=== PATIENT | female | born 1975 | race African-American/Black ===

== ENCOUNTER 2019-12-22 08:10 | Inpatient (IN) | payer MEDICAID, OTHER ==
[~2019-12-22] VITALS: Ht 167.6 cm; Wt 98.2 kg
[2019-12-22] MEDS ORDERED: ONDANSETRON HCL 4MG/2ML INJ IV STA (08:27)
[2019-12-22] MEDS ORDERED: MORPHINE SULFATE 4 MG/ML CPJ (NOT FOR IM USE) IV STA (08:27)
[2019-12-22 09:01] LABS: BASOPHILS % 0.4 % (0.0-2.0); EOSINOPHILS % 0.3 % (0.0-5.0); HEMATOCRIT. 41.5 % (36.0-48.0); HEMOGLOBIN. 13.4 g/dL (12.0-16.0); LYMPHOCYTES % 7.6 % (20.0-50.0); MEAN CORPUSCULAR HEMOGLOBIN 23.8 pg (28.0-32.0); MEAN CORPUSCULAR VOLUME 73.6 fL (81.0-99.0); MEAN PLATELET VOLUME 8.7 fl (7.4-10.4); MONOCYTES % 9.1 % (2.0-8.0); NEUTROPHILS % 82.6 % (40.0-76.0); PLATELET 357 x1000/uL (130-400); RED BLOOD CELL COUNT 5.63 mill/uL (4.2-5.4); RED CELL DISTRIBUTION WIDTH 14.4 % (11.6-14.6)
[2019-12-22 09:06] LABS: CHLORIDE 101 mEq/L (98-107); CLARITY URINE CLEAR (CLEAR); COLOR URINE DARK YELLOW (YELLOW); KETONES URINE 2+ (NEGATIVE); LEUKOCYTE ESTERASE URINE 1+ (NEGATIVE); NITRITE URINE NEGATIVE (NEGATIVE); OCCULT BLOOD URINE NEGATIVE (NEGATIVE); PROTEIN URINE 1+ (NEGATIVE); SPECIFIC GRAVITY URINE 1.022 (1.005-1.030)
[2019-12-22 09:08] LABS: INR 1.1; PROTHROMBIN TIME 11.5 sec (9.6-11.0)
[2019-12-22 09:18] LABS: HCG SCREEN NEGATIVE
[2019-12-22] MEDS ORDERED: LEVOFLOXACIN 750MG PREMIX 150 ML IV ONE (09:45)
[2019-12-22] MEDS ORDERED: METRONIDAZOLE 500 MG PREMIX 100 ML IV ONE (09:45)
[2019-12-22] MEDS ORDERED: CLONIDINE 0.1MG TABLET PO PRN (18:30)
[2019-12-22] MEDS ORDERED: LORAZEPAM 2MG/ML CPJ IV PRN (18:30)
[2019-12-22] MEDS ORDERED: GUAIFENESIN 200MG/10ML SUGAR FREE UDC PO PRN (18:30)
[2019-12-22] MEDS ORDERED: ONDANSETRON HCL 4MG/2ML INJ IV PRN (18:30)
[2019-12-22] MEDS ORDERED: ENOXAPARIN 40MG/0.4ML SYR SUBCUT SCH (18:30)
[2019-12-22] MEDS ORDERED: DIPHENHYDRAMINE 50MG/ML VIAL IV PRN (18:30)
[2019-12-22] MEDS ORDERED: HYDRALAZINE 20MG/ML VIAL IV PRN (18:30)
[2019-12-22] MEDS ORDERED: ACETAMINOPHEN 325MG TABLET PO PRN (18:30)
[2019-12-22] MEDS ORDERED: MAGNESIUM/ALUMINUM HYDROXIDE/SIMETHICONE 30ML UDC PO PRN (18:30)
[2019-12-22] MEDS ORDERED: LEVOFLOXACIN 500MG PREMIX 100 ML IV SCH (18:30)
[2019-12-22] MEDS ORDERED: DOCUSATE SODIUM 100MG CAPSULE PO PRN (18:30)
[2019-12-22] MEDS ORDERED: IPRATROPIUM/ALBUTEROL 0.5-3(2.5)MG/3ML NEB HHN PRN (18:30)
[2019-12-22] MEDS ORDERED: MORPHINE SULFATE 2 MG/ML CPJ (NOT FOR IM USE) IV PRN (18:30)
[2019-12-22] MEDS ORDERED: HYDROCODONE/ACETAMINOPHEN 10/325MG TABLET PO PRN (18:30)
[2019-12-22] MEDS ORDERED: KCL 20MEQ/100ML PREMIX 100 ML IV NR (18:45)
[2019-12-22] MEDS: DEXT 5%/0.45% NACL 1000ML 1,000 ML IV SCH (19:06)
[2019-12-22] MEDS: ENOXAPARIN 30MG/0.3ML SYR SUBCUT SCH ×2 (21:16→21:25)
[2019-12-22 22:00] VITALS: BP 137/74
[2019-12-23] VITALS: BP 137/74
[2019-12-23] MEDS: ACETAMINOPHEN 325MG TABLET PO PRN ×2 (01:13→20:19)
[2019-12-23] MEDS: HYDROCODONE/ACETAMINOPHEN 10/325MG TABLET PO PRN ×5 (01:13→21:13)
[2019-12-23] MEDS: SODIUM CHLORIDE 0.9% INJ 3ML FLUSH IVF SCH ×4 (01:13→22:00)
[2019-12-23 04:00] VITALS: BP 93/51
[2019-12-23 08:00] VITALS: BP 111/58
[2019-12-23] MEDS ORDERED: LEVOFLOXACIN 250MG PREMIX 50 ML IV SCH (09:00)
[2019-12-23 12:00] VITALS: BP 125/75
[2019-12-23] MEDS: DEXT 5%/0.45% NACL 1000ML 1,000 ML IV SCH ×2 (12:51→20:13)
[2019-12-23] MEDS: METRONIDAZOLE 500 MG PREMIX 100 ML IV SCH ×2 (15:34→21:12)
[2019-12-23 16:00] VITALS: BP 128/68
[2019-12-23 20:09] VITALS: BP 119/64
[2019-12-23] MEDS: ENOXAPARIN 40MG/0.4ML SYR SUBCUT SCH (20:19)
[2019-12-24] VITALS: BP 146/71
[2019-12-24] MEDS: ONDANSETRON HCL 4MG/2ML INJ IV PRN ×3 (00:29→23:28)
[2019-12-24] MEDS: MORPHINE SULFATE 2 MG/ML CPJ (NOT FOR IM USE) IV PRN (01:12)
[2019-12-24 03:37] VITALS: BP 139/73
[2019-12-24] MEDS: METRONIDAZOLE 500 MG PREMIX 100 ML IV SCH ×3 (05:00→21:24)
[2019-12-24] MEDS: SODIUM CHLORIDE 0.9% INJ 3ML FLUSH IVF SCH ×3 (05:01→21:25)
[2019-12-24] MEDS: HYDROCODONE/ACETAMINOPHEN 10/325MG TABLET PO PRN ×4 (05:03→21:24)
[2019-12-24 07:09] LABS: HEMATOCRIT 37.5 % (36.0-48.0); MEAN CORPUSCULAR HEMOGLOBIN 23.7 pg (28.0-32.0); PLATELET 347 x1000/uL (130-400); RED BLOOD CELL COUNT 5.07 mill/uL (4.2-5.4); RED CELL DISTRIBUTION WIDTH 14.4 % (11.6-14.6)
[2019-12-24 07:45] LABS: CHLORIDE 102 mEq/L (98-107)
[2019-12-24 08:00] VITALS: BP 113/58
[2019-12-24] MEDS ORDERED: POTASSIUM CHLORIDE 20MEQ TABLET SR PO NR (09:45)
[2019-12-24 12:00] VITALS: BP 130/79
[2019-12-24] MEDS: DEXT 5%/0.45% NACL 1000ML 1,000 ML IV SCH (12:27)
[2019-12-24] MEDS ORDERED: LEVOFLOXACIN 750MG PREMIX 150 ML IV SCH (13:00)
[2019-12-24 16:30] VITALS: BP 143/79
[2019-12-24] MEDS: PIPERACILLIN SODIUM/TAZOBACTAM 4.5 G in DEXT 5% WATER 100 ML IV SCH (17:18)
[2019-12-24 20:00] VITALS: BP 135/65
[2019-12-24] MEDS: ENOXAPARIN 40MG/0.4ML SYR SUBCUT SCH (21:24)
[2019-12-24] MEDS: ACETAMINOPHEN 325MG TABLET PO PRN (23:30)
[2019-12-25] VITALS (21 sets, daily range): BP systolic 129–183; BP diastolic 69–95
[2019-12-25] MEDS: PIPERACILLIN SODIUM/TAZOBACTAM 4.5 G in DEXT 5% WATER 100 ML IV SCH ×4 (02:02→18:15)
[2019-12-25] MEDS: DEXT 5%/0.45% NACL 1000ML 1,000 ML IV SCH ×2 (02:04→14:51)
[2019-12-25] MEDS: HYDROCODONE/ACETAMINOPHEN 10/325MG TABLET PO PRN ×2 (02:09→16:39)
[2019-12-25] MEDS: SODIUM CHLORIDE 0.9% INJ 3ML FLUSH IVF SCH ×3 (05:49→21:23)
[2019-12-25 05:50] LABS: BASOPHILS % 0.1 % (0.0-2.0); EOSINOPHILS % 0.8 % (0.0-5.0); HEMOGLOBIN. 12.1 g/dL (12.0-16.0); LYMPHOCYTES % 8.9 % (20.0-50.0); MEAN CORPUSCULAR HEMOGLOBIN 23.5 pg (28.0-32.0); MEAN CORPUSCULAR VOLUME 73.9 fL (81.0-99.0); MEAN PLATELET VOLUME 8.8 fl (7.4-10.4); MONOCYTES % 7.2 % (2.0-8.0); PLATELET 362 x1000/uL (130-400); RED BLOOD CELL COUNT 5.15 mill/uL (4.2-5.4); RED CELL DISTRIBUTION WIDTH 14.6 % (11.6-14.6)
[2019-12-25] MEDS: METRONIDAZOLE 500 MG PREMIX 100 ML IV SCH ×3 (05:50→21:22)
[2019-12-25 05:54] LABS: CHLORIDE 105 mEq/L (98-107)
[2019-12-25] MEDS: ONDANSETRON HCL 4MG/2ML INJ IV PRN ×2 (06:42→10:15)
[2019-12-25] MEDS: MORPHINE SULFATE 2 MG/ML CPJ (NOT FOR IM USE) IV PRN (10:15)
[2019-12-25] MEDS ORDERED: LIDOCAINE HCL 1% 20ML VIAL (Pyxis) INJ ONE (11:46)
[2019-12-25] MEDS ORDERED: SODIUM BICARBONATE 4% (2.4MEQ) 5ML VIAL IV ONE (11:46)
[2019-12-25] MEDS ORDERED: FENTANYL CITRATE/PF 50MCG/ML 2ML VIAL ONE (11:46)
[2019-12-25] MEDS ORDERED: FENTANYL CITRATE/PF 50MCG/ML 2ML VIAL IV ONE (14:30)
[2019-12-25 15:29] LABS: INR 1.2
[2019-12-25] MEDS: ENOXAPARIN 40MG/0.4ML SYR SUBCUT SCH (21:22)
[2019-12-26] VITALS: BP 143/77
[2019-12-26] MEDS: PIPERACILLIN SODIUM/TAZOBACTAM 4.5 G in DEXT 5% WATER 100 ML IV SCH ×5 (00:02→23:11)
[2019-12-26] MEDS: ACETAMINOPHEN 325MG TABLET PO PRN ×2 (00:03→05:39)
[2019-12-26 04:00] VITALS: BP 134/73
[2019-12-26] MEDS: METRONIDAZOLE 500 MG PREMIX 100 ML IV SCH ×3 (05:37→21:20)
[2019-12-26] MEDS: DEXT 5%/0.45% NACL 1000ML 1,000 ML IV SCH ×2 (05:38→14:13)
[2019-12-26] MEDS: SODIUM CHLORIDE 0.9% INJ 3ML FLUSH IVF SCH ×3 (05:39→21:21)
[2019-12-26 06:36] LABS: BASOPHILS % 0.2 % (0.0-2.0); HEMATOCRIT. 38.8 % (36.0-48.0); HEMOGLOBIN. 12.4 g/dL (12.0-16.0); LYMPHOCYTES % 10.4 % (20.0-50.0); MEAN CORPUSCULAR HEMOGLOBIN 23.6 pg (28.0-32.0); MEAN CORPUSCULAR VOLUME 73.8 fL (81.0-99.0); MEAN PLATELET VOLUME 8.9 fl (7.4-10.4); MONOCYTES % 6.5 % (2.0-8.0); NEUTROPHILS % 81.9 % (40.0-76.0); PLATELET 368 x1000/uL (130-400); RED BLOOD CELL COUNT 5.26 mill/uL (4.2-5.4); RED CELL DISTRIBUTION WIDTH 14.6 % (11.6-14.6)
[2019-12-26 06:46] LABS: CHLORIDE 104 mEq/L (98-107)
[2019-12-26 08:00] VITALS: BP 125/66
[2019-12-26 12:00] VITALS: BP 148/72
[2019-12-26 16:00] VITALS: BP 145/82
[2019-12-26] MEDS: HYDROCODONE/ACETAMINOPHEN 10/325MG TABLET PO PRN (18:23)
[2019-12-26 20:00] VITALS: BP_SYST 117; BP_SYST 137; BP_DIAS 68; BP_DIAS 75
[2019-12-26] MEDS: ENOXAPARIN 40MG/0.4ML SYR SUBCUT SCH (21:21)
[2019-12-27] VITALS: BP 155/71
[2019-12-27] MEDS: HYDROCODONE/ACETAMINOPHEN 10/325MG TABLET PO PRN ×2 (03:34→11:07)
[2019-12-27] MEDS: DEXT 5%/0.45% NACL 1000ML 1,000 ML IV SCH ×2 (03:37→18:26)
[2019-12-27 04:00] VITALS: BP 130/76
[2019-12-27] MEDS: PIPERACILLIN SODIUM/TAZOBACTAM 4.5 G in DEXT 5% WATER 100 ML IV SCH ×4 (05:11→23:43)
[2019-12-27] MEDS: SODIUM CHLORIDE 0.9% INJ 3ML FLUSH IVF SCH ×3 (05:11→22:13)
[2019-12-27] MEDS: METRONIDAZOLE 500 MG PREMIX 100 ML IV SCH ×3 (05:11→22:13)
[2019-12-27 08:00] VITALS: BP 116/75
[2019-12-27 12:00] VITALS: BP 131/100
[2019-12-27] MEDS: ACETAMINOPHEN 325MG TABLET PO PRN (14:27)
[2019-12-27 16:00] VITALS: BP 135/65
[2019-12-27 20:00] VITALS: BP 157/80
[2019-12-27] MEDS: ENOXAPARIN 40MG/0.4ML SYR SUBCUT SCH (20:26)
[2019-12-27] MEDS: MORPHINE SULFATE 2 MG/ML CPJ (NOT FOR IM USE) IV PRN (20:27)
[2019-12-27] MEDS: ONDANSETRON HCL 4MG/2ML INJ IV PRN (20:30)
[2019-12-28] VITALS: BP 137/71
[2019-12-28 04:00] VITALS: BP 133/71
[2019-12-28] MEDS: METRONIDAZOLE 500 MG PREMIX 100 ML IV SCH ×2 (05:28→13:25)
[2019-12-28] MEDS: SODIUM CHLORIDE 0.9% INJ 3ML FLUSH IVF SCH ×3 (05:28→20:39)
[2019-12-28] MEDS: PIPERACILLIN SODIUM/TAZOBACTAM 4.5 G in DEXT 5% WATER 100 ML IV SCH ×4 (05:28→23:22)
[2019-12-28 07:48] VITALS: BP 121/66
[2019-12-28] MEDS: DEXT 5%/0.45% NACL 1000ML 1,000 ML IV SCH ×2 (08:50→20:38)
[2019-12-28] MEDS ORDERED: IOHEXOL-300 50 ML BOTTLE IV ONE (09:07)
[2019-12-28] MEDS: MORPHINE SULFATE 2 MG/ML CPJ (NOT FOR IM USE) IV PRN ×3 (10:40→22:10)
[2019-12-28 12:00] VITALS: BP 142/61
[2019-12-28 16:00] VITALS: BP 148/71
[2019-12-28 20:00] VITALS: BP 133/85
[2019-12-28] MEDS: ENOXAPARIN 40MG/0.4ML SYR SUBCUT SCH (20:38)
[2019-12-29] VITALS: BP 118/64
[2019-12-29 04:00] VITALS: BP 142/76
[2019-12-29] MEDS: SODIUM CHLORIDE 0.9% INJ 3ML FLUSH IVF SCH ×3 (05:57→20:58)
[2019-12-29] MEDS: PIPERACILLIN SODIUM/TAZOBACTAM 4.5 G in DEXT 5% WATER 100 ML IV SCH ×2 (05:57→11:33)
[2019-12-29 06:55] LABS: BASOPHILS % 0.4 % (0.0-2.0); EOSINOPHILS % 2.4 % (0.0-5.0); HEMATOCRIT. 36.3 % (36.0-48.0); HEMOGLOBIN. 11.6 g/dL (12.0-16.0); LYMPHOCYTES % 15.9 % (20.0-50.0); MEAN CORPUSCULAR HEMOGLOBIN 23.5 pg (28.0-32.0); MEAN CORPUSCULAR VOLUME 73.2 fL (81.0-99.0); MEAN PLATELET VOLUME 8.4 fl (7.4-10.4); MONOCYTES % 10.5 % (2.0-8.0); NEUTROPHILS % 70.8 % (40.0-76.0); PLATELET 389 x1000/uL (130-400); RED BLOOD CELL COUNT 4.96 mill/uL (4.2-5.4); RED CELL DISTRIBUTION WIDTH 14.5 % (11.6-14.6)
[2019-12-29 07:49] VITALS: BP 123/64
[2019-12-29] MEDS: DEXT 5%/0.45% NACL 1000ML 1,000 ML IV SCH ×2 (10:42→23:47)
[2019-12-29 11:53] VITALS: BP 149/80
[2019-12-29 16:00] VITALS: BP 136/96
[2019-12-29] MEDS: AMOXICILLIN/POTASSIUM CLAVULANATE 875/125MG TAB PO SCH (18:07)
[2019-12-29 20:00] VITALS: BP 130/79
[2019-12-29] MEDS: ENOXAPARIN 40MG/0.4ML SYR SUBCUT SCH (20:58)
[2019-12-30 00:24] VITALS: BP 138/77
[2019-12-30 05:03] VITALS: BP 117/62
[2019-12-30] MEDS: AMOXICILLIN/POTASSIUM CLAVULANATE 875/125MG TAB PO SCH ×2 (05:30→14:02)
[2019-12-30] MEDS: SODIUM CHLORIDE 0.9% INJ 3ML FLUSH IVF SCH (05:30)
[2019-12-30 06:38] LABS: BASOPHILS % 0.2 % (0.0-2.0); EOSINOPHILS % 1.7 % (0.0-5.0); HEMATOCRIT. 35.5 % (36.0-48.0); HEMOGLOBIN. 11.2 g/dL (12.0-16.0); MEAN CORPUSCULAR HEMOGLOBIN 23.2 pg (28.0-32.0); MEAN CORPUSCULAR VOLUME 73.2 fL (81.0-99.0); MEAN PLATELET VOLUME 8.5 fl (7.4-10.4); MONOCYTES % 8.4 % (2.0-8.0); NEUTROPHILS % 70.7 % (40.0-76.0); PLATELET 411 x1000/uL (130-400); RED BLOOD CELL COUNT 4.85 mill/uL (4.2-5.4); RED CELL DISTRIBUTION WIDTH 14.8 % (11.6-14.6)
[2019-12-30 08:15] VITALS: BP 121/67
[2019-12-30 15:07] VITALS: BP 122/68
[2019-12-30 15:45] VITALS: BP 124/70
[2019-12-30] MEDS ORDERED: ENOXAPARIN 30MG/0.3ML SYR SUBCUT SCH (21:00)
== END 2019-12-30 16:30 | disposition home health service (06) | DRG 710 ==
LOC: ER 08:10 → 8WST 10:30 → ENRESERV 20:21 → ER 22:04
PROVIDERS: ADMIT Internal Medicine; ATTEND Internal Medicine
PROC: 0D9N40Z Drainage of Sigmoid Colon with Drainage Device, Percutaneous Endoscopic Approach (ICD-10-PCS; principal; 2019-12-26)
DX: A41.9 Sepsis, unspecified organism (principal); E46 Unspecified protein-calorie malnutrition; E87.1 Hypo-osmolality and hyponatremia; E87.6 Hypokalemia; N39.0 Urinary tract infection, site not specified; K57.20 Diverticulitis of large intestine with perforation and abscess without bleeding; Z98.891 History of uterine scar from previous surgery; Z79.899 Other long term (current) drug therapy; Z68.34 Body mass index [BMI] 34.0-34.9, adult
CPT/HCPCS: 36415; 74176; 74177; 77012; 80048; 80053; 81003; 84703; 85025; 85027; 87070; 87075; 87077; 87186; 93005; 96365; 99152; 99153; 99285; C1729; C1769; J1650; J1956; J2270; J2405; J2543; J3010; J3480; J3490; J7060; L8514; Q9967; G0500

== ENCOUNTER 2021-08-24 18:57 | Emergency (ER) | payer MEDICAID ==
[~2021-08-24] VITALS: Ht 162.6 cm; Wt 86.0 kg
[2021-08-24 22:33] LABS: BASOPHILS % 0.3 % (0.0-2.0); EOSINOPHILS % 3.5 % (0.0-5.0); HEMATOCRIT. 43.4 % (36.0-48.0); HEMOGLOBIN. 14.1 g/dL (12.0-16.0); LYMPHOCYTES % 20.8 % (20.0-50.0); MEAN CORPUSCULAR HEMOGLOBIN 24.4 pg (28.0-32.0); MEAN CORPUSCULAR VOLUME 75.2 fL (81.0-99.0); MEAN PLATELET VOLUME 8.8 fl (7.4-10.4); NEUTROPHILS % 71.4 % (40.0-76.0); PLATELET 282 x1000/uL (130-400); RED BLOOD CELL COUNT 5.76 mill/uL (4.2-5.4); RED CELL DISTRIBUTION WIDTH 15.7 % (11.6-14.6)
[2021-08-24 22:47] LABS: CHLORIDE 109 mEq/L (98-107)
[2021-08-24] MEDS ORDERED: CEFTRIAXONE 1 G PREMIX 50 ML IV ONE (23:30)
[2021-08-24] MEDS ORDERED: SODIUM CHLORIDE 0.9% 1,000 ML IV ONE (23:30)
[2021-08-24] MEDS ORDERED: AZITHROMYCIN 500MG/250ML 250 ML IV ONE (23:30)
[2021-08-25] MEDS ORDERED: IOHEXOL-300 100 ML BOTTLE ONE (02:23)
[2021-08-25] MEDS ORDERED: BACL-141 MT (05:01)
[2021-08-25] MEDS ORDERED: IBUP-2029 MT (05:01)
[2021-08-25 05:13] VITALS: BP 136/72
== END 2021-08-25 05:17 | disposition home or self-care (01) ==
LOC: ER 18:57
DX: S29.8XXA Other specified injuries of thorax, initial encounter (principal); J90 Pleural effusion, not elsewhere classified; F17.210 Nicotine dependence, cigarettes, uncomplicated; Z93.3 Colostomy status; Z98.890 Other specified postprocedural states; V43.62XA Car passenger injured in collision with other type car in traffic accident, initial encounter; Y93.89 Activity, other specified; Y92.488 Other paved roadways as the place of occurrence of the external cause
CPT/HCPCS: 36415; 71045; 71260; 74177; 80053; 83605; 84484; 85025; 87040; 93005; 96365; 96366; 96367; 99285; J0456; J0696; J7030; Q9967